=== PATIENT | female | born 2000 | race Caucasian/White ===

== ENCOUNTER 2023-11-03 22:52 | Inpatient (IN) | payer BC, SELFPAY ==
[2023-11-03 22:52] VITALS: BP 120/76; PULSE 107; TEMP 36.3; O2SAT 100
[2023-11-03] MEDS: Lactated Ringers 1,000 ML 50 ML IV (23:00)
[2023-11-03 23:07] VITALS: BMI 23.8
[2023-11-03 23:16] VITALS: PULSE 104; O2SAT 100
[2023-11-03 23:27] LABS: Absolute Lymphocyte Count 1.88 X10^3/uL (0.83-4.51); Absolute Neutrophil Count 9.2 X10^3/uL (2.0-7.7); Basophil# 0.03 X10^3/uL; Basophil% 0.2 % (0-1); Eosinophil# 0.02 X10^3/uL; Eosinophils% 0.2 % (0-5); Hematocrit 37.9 % (37-47); Hemoglobin 12.7 g/dL (12.0-15.0); Lymphocyte # 1.88 X10^3/ul (0.83-4.51); Lymphocyte % 15.5 % (19-41); Mean Corp Hgb Conc 33.5 g/dL (32-36); Mean Corpuscular Hgb 32.3 pg (27.0-32.0); Mean Corpuscular Volume 96.4 fL (81-99); Mean Platelet Vol. 9.7 fl (6.2-12.0); Monocyte% 7.4 % (0-10); NRBC Flagged by Analyzer 0 % (0-5); Neutrophil # 9.17 X10^3/uL (2.7-7.7); Neutrophil % 75.5 % (47-70); Platelet Count 196 K/mm3 (150-450); RBC Distribution Width CV 13.2 % (11.6-14.6); RBC Distribution Width SD 47.1 fl (35.1-43.9); Red Blood Count 3.93 M/mm3 (4.2-5.4); White Blood Count 12.1 K/mm3 (4.4-11.0)
[2023-11-04] VITALS (19 sets, daily range): BP systolic 101–117; BP diastolic 53–71; PULSE 76–229; RESP 16; TEMP 36.3–37.4; O2SAT 87–99
[2023-11-04] MEDS: Methylergonovine 0.2 MG/ML Ampul IM (00:58)
[2023-11-04] MEDS: Oxytocin 15 Units/NS 250ml 15 UNITS/250 ML IV.SOLN 83 UNITS IV (01:00)
[2023-11-04 01:04] LABS: Syphilis Antibodies Non-reactive
--- NOTE | 2023-11-04 01:17 | PCM.HP.OB ---
HPI - General General Date of Admission: 11/03/23 HPI Narrative ALEKSANDER MEYERS, is a 23 F at 40.2 weeks gestation who presents in spontaneous labor. Maternal Data Information DEBBY Calculator Estimated Delivery Date Method Current WG Current Estimate 11/02/23 Manual 40w 2d PFSH PFS Medical History History of blood transfusion Home Medications vit 168-iron 27 mg-folic acid 800 mcg-omega3 235 mg capsule (One-A-Day -1) 1 cap PO DAILY 11/03/23 [History Last Taken 11/02/23 10:00 1 cap] Allergy/AdvReac Type Severity Reaction Status Date / Time Sulfa (Sulfonamide Allergy Hives Verified 11/03/23 23:08 Antibiotics) Surgical History History of surgery Social History Smoking Status: Never smoker History Elective abortions Hx Para 1 Spontaneous abortions Hx # Term Pregnancies Ectopic pregnancies Hx # Pregnancies Multiple births # of living children ROS Eyes Eyes: Denies blurry vision, change in vision or spots in vision ENT HEENT: Denies dizziness or headache(s) Cardiovascular Cardiovascular: Denies abdominal pain, chest pain or dyspnea Respiratory/Chest Respiratory/Chest: Denies cough, dyspnea, shortness of breath at rest or shortness of breath with exertion Gastrointestinal Gastrointestinal: Denies abdominal pain, diarrhea or vomiting Genitourinary Genitourinary: Denies change in urinary stream, difficulty urinating or dysuria Musculoskeletal Musculoskeletal: Reports none Integumentary Integumentary: Denies rash Neurologic Neurologic: Denies dizziness, headache(s), memory loss or weakness Psychiatric Psychiatric: Reports none Vital Signs Vital Signs Vital Signs: 11/03/23 23:16 11/03/23 23:16 11/04/23 00:00 Pulse Rate 104 H Blood Pressure 117/66 BP Systolic 117 BP Diastolic 66 Pulse Ox 100 11/04/23 00:00 11/04/23 01:15 11/04/23 01:15 Pulse Rate 95 97 Blood Pressure 110/67 BP Systolic 110 BP Diastolic 67 Pulse Ox 11/04/23 01:15 Pulse Rate Blood Pressure BP Systolic BP Diastolic Pulse Ox 99 Weight Weight: 161 lb 8 oz Body Mass Index (BMI) 23.8 Physical Exam Const alert, oriented x3 and no apparent distress General Appearance: cooperative Orientation / Consciousness: awake Exam Limitations: no limitations HEENT normocephalic Head and Scalp: normal to inspection Eyes General Eye: normal appearance of both eyes Neck full ROM and no lymphadenopathy Lymph Lymphatic: no lymphadenopathy noted Chest inspection of chest normal Resp normal respiratory effort, normal air movement and clear to auscultation bilaterally Effort and Inspection: able to speak in complete sentences and symmetric chest movement Cardio regular rate and regular rhythm GI normal to inspection, nondistended, normoactive bowel sounds Manual OB Exam: presentation cephalic Back/Spine normal ROM Extremity full ROM and no calf tenderness Skin no rashes or lesions noted General Skin Exam: no breakdown Neuro oriented x3 and CN's II-XII intact bilaterally Psych mental status grossly normal and thought process normal Labs Labs Labs: Blood Type O POSITIVE Antibody Screen NEGATIVE Hct 37.9 % (37-47) Hgb 12.7 g/dL (12.0-15.0) Syphilis Total Ab Non-reactive GBS NEG Assessment & Plan (1) 40 weeks gestation of : (2) Spontaneous onset of labor: (3) History of rhabdomyosarcoma: COMMENT: Left forearm. Remission for 5 years. PLAN: Plan CE Cat. 1 tracing, NST reactive Admit to labor and delivery Routine labs Start IV and run fluids per orders Epidural if indicated Anticipate Dr. Alejandro notified of admission and is collaborating physician
--- NOTE | 2023-11-04 01:24 | OP.PCM_ITS ---
Assessment & Plan (1) Precipitous delivery: (2) Vaginal hematoma: (3) Care and examination of lactating mother: Maternal Data Information DEBBY Calculator Estimated Delivery Date Method Current WG Current Estimate 11/02/23 Manual 40w 2d Vaginal Delivery Maternal Presentation Maternal Presentation: Active Labor Maternal Presentation: at 40.2 weeks gestation that presented in spontaneous, active labor. Type of Induction: Amniotomy (Augmentation at 9 cm dilation) Operative Information Date of Procedure: 11/04/23 Pre-Operative Diagnosis: Term, Spontaneous onset of labor Post-Operative Diagnosis: Precipitous , live female Surgery / Procedure Performed: Spontaneous Vaginal Delivery Type of Anesthesia: None Estimated Blood Loss: 200 Time of Delivery: 00:56 Findings Description of Procedure: Patient arrived to unit and quickly progressed to complete dilation. Unmedicated and requesting AROM to deliver. AROM for meconium fluid. Patient pushed well with contractions. Delivery of head over intact perineum followed imm ediately by anterior shoulder and remainder of infant body without traction. Vigorous female placed on maternal abdomen and attended to by nursing staff. Dr. Nichols present in room for delivery. Pitocin IM given for active management of the third stage of labor. 3 vessel cord clamped and cut by FOB after delay and placed immediately skin to skin with patient. Placenta delivered spontaneously and intact. Vagina and perineum intact. Small hematoma noted to introitus. Vaginal sweep completed by me. Fundus firm and 1 below U. Hemostasis obtained. EBL 200 cc. Patient and infant bonding well at this time. Dr. Alejandro notified of delivery. Presentation: Vertex Amniotic Membrane Rupture Type: Artificial Time of Membrane Rupture: 0046 Amniotic Fluid Description: Lightly stained meconium Placental Delivery Description: Spontaneous Placenta Disposition: [facility] Cord Vessel Description: 3 Vessels Cord Entanglement: None Infant A Gender: Female (1 minute): 9 (5 minute): 9 Delayed Cord Clamping: Yes Post Vaginal Delivery Medications Given After Delivery: IM Pitocin Episiotomy Description: None Laceration: None Complication Complications: None
[2023-11-04] MEDS: Acetaminophen 500 MG Tablet 1000 MG PO ×3 (01:57→17:07)
[2023-11-04] MEDS: Benzocaine/Lanolin/Aloe Vera 1 SPRAY EACH TOPICAL (01:58)
[2023-11-04] MEDS: Naproxen 500 MG Tablet PO ×3 (01:58→21:08)
[2023-11-04 06:04] LABS: Absolute Lymphocyte Count 1.55 X10^3/uL (0.83-4.51); Basophil# 0.03 X10^3/uL; Basophil% 0.2 % (0-1); Hematocrit 40.4 % (37-47); Hemoglobin 13.6 g/dL (12.0-15.0); Lymphocyte # 1.55 X10^3/ul (0.83-4.51); Lymphocyte % 8.2 % (19-41); Mean Corp Hgb Conc 33.7 g/dL (32-36); Mean Corpuscular Volume 95.1 fL (81-99); Mean Platelet Vol. 9.6 fl (6.2-12.0); Monocyte# 1.21 X10^3/uL; Monocyte% 6.4 % (0-10); NRBC Flagged by Analyzer 0 % (0-5); Neutrophil # 16.01 X10^3/uL (2.7-7.7); Neutrophil % 84.6 % (47-70); Platelet Count 215 K/mm3 (150-450); RBC Distribution Width CV 13.1 % (11.6-14.6); RBC Distribution Width SD 45.2 fl (35.1-43.9); Red Blood Count 4.25 M/mm3 (4.2-5.4); White Blood Count 18.9 K/mm3 (4.4-11.0)
[2023-11-05 01:44] VITALS: BP 94/48; PULSE 71; RESP 16; TEMP 36.7
[2023-11-05] MEDS: Acetaminophen 500 MG Tablet 1000 MG PO (02:10)
--- NOTE | 2023-11-05 08:34 | PCM.PROGNOTE ---
Subjective Subjective patient seen at bedside, doing well. Patient reports good pain control. lochia mild. breast feeding. reports vulvar hematoma not getting larger, minimal soreness- urinating w/o difficulty. Objective Data Objective Data Vital Signs: Vital Signs Temp Pulse Resp BP Pulse Ox O2 Del Method 98.0 F 71 16 94/48 L 99 Room Air 11/05/23 01:44 11/05/23 01:44 11/05/23 01:44 11/05/23 01:44 11/04/23 01:40 11/05/23 01:44 Oxygen Delivery Method Room Air Weight: 73.255 kg Body Mass Index (BMI) 23.8 Intake & Output: Intake and Output for Last 24 Hours 11/03/23 11/04/23 11/05/23 23:59 23:59 23:59 Intake Total 346.67 / 346.67 Output Total 200 / 200 Balance 146.67 / 146.67 Lab / Micro Data 11/04/23 05:52 Physical Exam Narrative Pt declined evaluation of vulvar hematoma site at this time- states was examined earlier and it was stable Fundus firm Const alert and oriented x3 General Appearance: cooperative HEENT normocephalic Neck General: normal visual inspection GI soft to palpation and non-distended GI Narrative: Fundus firm Extremity normal to inspection and no calf tenderness Skin no rashes or lesions noted Neuro oriented x3 and CN's II-XII intact bilaterally Psych mental status grossly normal Assessment & Plan Assessment/Plan (1) Care and examination of lactating mother: (2) Vaginal hematoma: (3) Precipitous delivery: (4) History of rhabdomyosarcoma: (5) Vaginal delivery: PLAN: Plan PPD#1 , Doing well Routine care pain mgmt ambulation dc home
--- NOTE | 2023-11-05 08:36 | DCINST_ITS ---
Discharge Instructions Diet Discharge Diet: No restrictions Activity May resume sexual activity in: 6-8 weeks Dressing / Incision Call your doctor if you observe: Fever of 101 or Higher, Inability to urinate, Using more than 1 pad per hour and Uncontrolled pain Follow Up Care Please Follow Up With: Mary Bey MD When: 1-2 weeks post and again at 6 weeks post . [phone] Test Results: Test results from this visit will be discussed in further detail at your follow- up appointment, if applicable. Discharge Plan Admission Admit Date/Time: 11/03/23 22:52 Attending Provider: Medina Leong Discharge Orders/Prescriptions Prescriptions: New acetaminophen 500 mg Tablet 1,000 mg PO Q6H PRN PRN (Reason: Pain 1-10 Or Fever) Qty: 0 0RF naproxen 500 mg Tablet 500 mg PO Q8H PRN PRN (Reason: Pain Score 1-3) Qty: 0 0RF Continued One-A-Day -1 27 mg iron- 800 mcg-235 mg capsule 1 cap PO DAILY Disposition Disposition (needs filled in before D/C Order can be placed): Home, Self Care
[2023-11-05] MEDS: Naproxen 500 MG Tablet PO (09:18)
[2023-11-05 09:47] VITALS: BP 98/59; PULSE 70; RESP 16; TEMP 36.3
== END 2023-11-05 12:10 | disposition home or self-care (01) | DRG 806 ==
LOC: WP 22:53
PROVIDERS: Admitting Provider Advanced Practice Midwife; Referring Provider Advanced Practice Midwife; Visit Provider Advanced Practice Midwife
DX: O62.3 Precipitate labor (principal); Z37.0 Single live birth; O71.7 Obstetric hematoma of pelvis; O77.0 Labor and delivery complicated by meconium in amniotic fluid; Z3A.40 40 weeks gestation of pregnancy; Z85.831 Personal history of malignant neoplasm of soft tissue
CPT/HCPCS: 59050; 85025; 86780; 86850; 86900; 86901; 99221; J7120; G0378

== ENCOUNTER 2025-01-06 07:00 | Inpatient (IN) | payer BC, SELFPAY ==
[2025-01-06] VITALS (42 sets, daily range): BP systolic 100–135; BP diastolic 55–91; PULSE 67–229; RESP 16–18; TEMP 36.3–37; O2SAT 96–100; BMI 25.6
--- NOTE | 2025-01-06 07:21 | HP.PCM.OB_ITS ---
HPI - General General Date of Admission: 01/06/25 HPI Narrative ALEKSANDER MEYERS, is a 24 F at 41.3 weeks gestation who presents for induction of labor for postdates. PFSH PFSH Medical History History of blood transfusion Home Medications ?Medication ?Instructions ?Recorded ?Last Taken ?Type vit 168-iron 27 mg-folic 1 cap PO DAILY pregn kathy 11/03/23 01/05/25 History acid 800 mcg-omega3 235 mg capsule (One-A-Day -1) Allergy/AdvReac Type Severity Reaction Status Date / Time Sulfa (Sulfonamide Allergy Hives Verified 01/06/25 07:22 Antibiotics) Surgical History (Updated 01/06/25 @ 07:37 by Jaclyn Smyth) History of surgery Social History Smoking Status: Never smoker History Elective abortions Hx Para 2 Spontaneous abortions Hx # Term Pregnancies Ectopic pregnancies Hx # Pregnancies Multiple births # of living children NST FHR Rate Baby A Variability:: Moderate Accelerations:: 15 x 15 Decelerations:: None NST Reactive:: Yes FHR Category:: Category I ROS Eyes Eyes: Denies blurry vision, change in vision or spots in vision ENT HEENT: Denies dizziness or headache(s) Cardiovascular Cardiovascular: Denies abdominal pain, chest pain or dyspnea Respiratory/Chest Respiratory/Chest: Denies cough, dyspnea, shortness of breath at rest or s hortness of breath with exertion Gastrointestinal Gastrointestinal: Denies abdominal pain, diarrhea or vomiting Genitourinary Genitourinary: Denies change in urinary stream, difficulty urinating or dysuria Musculoskeletal Musculoskeletal: Reports none Integumentary Integumentary: Denies rash Neurologic Neurologic: Denies dizziness, headache(s), memory loss or weakness Psychiatric Psychiatric: Reports none Vital Signs Vital Signs Vital Signs: Weight Weight: 173 lb 11.588 oz Body Mass Index (BMI) 25.6 Physical Exam Const alert, oriented x3 and no apparent distress General Appearance: cooperative Orientation / Consciousness: awake Exam Limitations: no limitations HEENT normocephalic Head and Scalp: normal to inspection Eyes General Eye: normal appearance of both eyes Neck full ROM and no lymphadenopathy Lymph Lymphatic: no lymphadenopathy noted Chest inspection of chest normal Resp normal respiratory effort, normal air movement and clear to auscultation bilaterally Effort and Inspection: able to speak in complete sentences and symmetric chest movement Cardio regular rate and regular rhythm GI normal to inspection, nondistended, normoactive bowel sounds Manual OB Exam: presentation cephalic Back/Spine normal ROM Extremity full ROM and no calf tenderness Skin no rashes or lesions noted General Skin Exam: no breakdown Neuro oriented x3 and CN's II-XII intact bilaterally Psych mental status grossly normal and thought process normal Labs Labs Labs: Blood Type O POSITIVE Antibody Screen NEGATIVE Hct 36.2 % (37-47) L Hgb 12.1 g/dL (12.0-15.0) Syphilis Total Ab Non-reactive Rhogam given: No Assessment & Plan (1) History of rhabdomyosarcoma: COMMENT: Left forearm. Remission for 5 years. (2) Post term , 41 weeks: (3) Encounter for induction of labor: PLAN: Plan Admit to labor and delivery CE 2/-2 Nipple stimulation and position changes at this time Recheck in 2-3 hours, if no change - agrees to AROM Dr. Medina notified of admission and is collaborating physician
[2025-01-06] MEDS: Lactated Ringers 1,000 ML 50 ML IV ×2 (07:55→10:23)
[2025-01-06 08:17] LABS: Absolute Lymphocyte Count 1.69 X10^3/uL (0.83-4.51); Absolute Neutrophil Count 6.1 X10^3/uL (2.0-7.7); Basophil# 0.02 X10^3/uL; Basophil% 0.2 % (0-1); Eosinophil# 0.04 X10^3/uL; Eosinophils% 0.5 % (0-5); Hematocrit 36.2 % (37-47); Hemoglobin 12.1 g/dL (12.0-15.0); Lymphocyte # 1.69 X10^3/ul (0.83-4.51); Lymphocyte % 19.8 % (19-41); Mean Corp Hgb Conc 33.4 g/dL (32-36); Mean Corpuscular Hgb 30.8 pg (27.0-32.0); Mean Corpuscular Volume 92.1 fL (81-99); Mean Platelet Vol. 9.8 fl (6.2-12.0); Monocyte# 0.63 X10^3/uL; Monocyte% 7.4 % (0-10); NRBC Flagged by Analyzer 0 % (0-5); Neutrophil # 6.08 X10^3/uL (2.7-7.7); Neutrophil % 71.3 % (47-70); Platelet Count 201 K/mm3 (150-450); RBC Distribution Width CV 13.2 % (11.6-14.6); RBC Distribution Width SD 43.8 fl (35.1-43.9); Red Blood Count 3.93 M/mm3 (4.2-5.4); White Blood Count 8.5 K/mm3 (4.4-11.0)
[2025-01-06 09:21] LABS: Syphilis Antibodies Non-reactive
--- NOTE | 2025-01-06 15:39 | PN.OBGYN_ITS ---
Subjective Subjective Patient ambulating in room and sitting on birthing ball. Objective Data Objective Data Vital Signs: Vital Signs Temp Pulse Resp BP Pulse Ox 97.8 F 93 16 106/63 97 01/06/25 11:09 01/06/25 13:27 01/06/25 11:09 01/06/25 11:09 01/06/25 13:27 Weight: 173 lb 11.588 oz Body Mass Index (BMI) 25.6 Intake & Output: Intake and Output for Last 24 Hours 01/04/25 01/05/25 01/06/25 23:59 23:59 23:59 Intake Total 123.33 / 123.33 Balance 123.33 / 123.33 Lab / Micro Data Attestation: I reviewed the patient's lab results. 01/06/25 07:55 Labs: Laboratory Results - last 24 hr 01/06/25 07:55: WBC 8.5, RBC 3.93 L, Hgb 12.1, Hct 36.2 L, MCV 92.1, MCH 30.8, MCHC 33.4, RDW Std Deviation 43.8, RDW Coeff of Jan 13.2, Plt Count 201, MPV 9.8, Immature Gran % (Auto) 0.800, Neut % (Auto) 71.3 H, Lymph % (Auto) 19.8, Mclennan % (Auto) 7.4, Eos % (Auto) 0.5, Baso % (Auto) 0.2, Absolute Neuts (auto) 6.1, Absolute Lymphs (auto) 1.69, Nucleated RBC % 0, Syphilis Total Ab Non- reactive, Blood Type O POSITIVE, Antibody Screen NEGATIVE Assessment & Plan (1) Encounter for induction of labor: (2) Post term , 41 weeks: PLAN: Plan CE /-2 Soft and stretchy AROM for clear fluid If no change by next exam- will start Pitocin IV Anticipate
[2025-01-06] MEDS: Oxytocin 15 Units/NS 250ml 15 UNITS/250 ML IV.SOLN 2 UNITS IV (18:30)
[2025-01-06] MEDS: LACTATED RINGERS 500 ML 999 ML IV (19:48)
--- NOTE | 2025-01-06 21:12 | EX.PCM.OBVAG ---
Assessment & Plan (1) Vaginal delivery: (2) Care and examination of lactating mother: Maternal Data Information DEBBY Calculator Estimated Delivery Date Method Current WG Current Estimate 12/27/24 Manual 41w 3d Gestational age: 41.3 Vaginal Delivery Vaginal Delivery Information Procedure Performed: Spontaneous Vaginal Delivery Surgeon/Practitioner: Medina Leong Date of Procedure: 01/06/25 Pre-Procedure Diagnosis: Term gestation, induction of labor Post-Procedure Diagnosis: , Live male Type of anesthesia: None Estimated Blood Loss: 200 Time of Delivery: 20:27 Findings Description of procedure: Patient progressed to complete dilation. With good maternal effort, head delivered followed by anterior shoulder and remainder of body without any force, delay, or traction. Double nuchal cord loose and easily resolved. Vigorous male was delivered atraumatically and placed on maternal abdomen. Pitocin IV started for active management of the third stage of labor. 3 vessel cord clamped and cut after delay and infant placed immediately skin to skin with patient. Cord blood collected. Placenta delivered spontaneously and intact. After inspection, vagina and perineum are intact. Vaginal sweep performed. Fundus is firm 2 below U and bleeding is hemostatic. Sponge and sharps counts correct. Patient and infant bonding well at this time. Dr. Medina notified of delivery. Routine post orders placed. Presentation: Vertex Amniotic Membrane Rupture Type: Artificial Amniotic Fluid Description: Clear Placental Delivery Description: Spontaneous Placenta Disposition: [facility] Specimen collected: No Cord Vessel Description: 3 Vessels Cord Entanglement: Around neck x 2, loose Nuchal Cord Compression: Without compression A Gender: Male (1 minute): 8 (5 minute): 9 Delayed Cord Clamping: Yes Home Attendant director distribution: No Post Vaginal Deli Medications given after delivery: IV Pitocin Episiotomy Description: None Laceration: None Complication Complications: No
[2025-01-06] MEDS: Oxytocin 15 Units/NS 250ml 15 UNITS/250 ML IV.SOLN 83 UNITS IV (21:22)
[2025-01-06] MEDS: Naproxen 500 MG Tablet PO (22:00)
[2025-01-07] VITALS (10 sets, daily range): BP systolic 95–113; BP diastolic 51–63; PULSE 79–99; RESP 14–16; TEMP 36.4–37.2; O2SAT 96–98
[2025-01-07] MEDS: Naproxen 500 MG Tablet PO ×2 (06:21→14:40)
--- NOTE | 2025-01-07 09:28 | PCM.PN.CNM ---
Subjective Subjective Patient seen at bedside. Denies any pain. Ambulating and voiding without difficulty. Lochia decreasing. independently. Objective Data Objective Data Vital Signs: Vital Signs Temp Pulse Resp BP Pulse Ox O2 Del Method 98 F 99 14 113/59 L 97 Room Air 01/07/25 08:23 01/07/25 08:23 01/07/25 08:23 01/07/25 08:23 01/07/25 04:25 01/07/25 08:23 Oxygen Delivery Method Room Air Weight: 173 lb 11.588 oz Body Mass Index (BMI) 25.6 Intake & Output: Intake and Output for Last 24 Hours 01/05/25 01/06/25 01/07/25 23:59 23:59 23:59 Intake Total 1426.66 / 1426.66 250 / 250 Output Total 650 / 650 450 / 450 Balance 776.66 / 776.66 -200 / -200 Lab / Micro Data Attestation: I reviewed the patient's lab results. 01/06/25 07:55 Labs: Laboratory Results - last 24 hr 01/06/25 07:55: Antibody Screen NEGATIVE ROS Eyes Eyes: Denies blurry vision, change in vision or spots in vision ENT HEENT: Denies dizziness or headache(s) Cardiovascular Cardiovascular: Denies abdominal pain, chest pain or dyspnea Respiratory/Chest Respiratory/Chest: Denies cough, dyspnea, shortness of breath at rest or shortness of breath with exertion Gastrointestinal Gastrointestinal: Denies abdominal pain, diarrhea or vomiting Genitourinary Genitourinary: Denies change in urinary stream, difficulty urinating or dysuria Musculoskeletal Musculoskeletal: Reports none Integumentary Integumentary: Denies rash Neurologic Neurologic: Denies dizziness, headache(s), memory loss or weakness Physical Exam Const alert and no apparent distress General Appearance: cooperative and comfortable Exam Limitations: no limitations HEENT normocephalic Eyes General Eye: normal appearance of both eyes Neck full ROM General: normal visual inspection Chest Chest: symmetrical chest wall rise Resp normal respiratory effort and normal air movement Effort and Inspection: symmetric chest movement Auscultation: clear to auscultation bilaterally Cardio regular rate and regular rhythm GI normal to inspection, nondistended, normoactive bowel sounds Back/Spine normal ROM Extremity full ROM and no calf tenderness General Extremity: normal exam except as noted Skin no rashes or lesions noted Neuro oriented x3 Speech: speech normal Psych mental status grossly normal Thought Process: normal thought process Assessment & Plan (1) Vaginal delivery: (2) Care and examination of lactating mother: PLAN: Plan PPD 1 support Routine care Desires discharge home tomorrow
[2025-01-08 01:10] VITALS: BP 93/53; PULSE 72; RESP 16; TEMP 36.4; O2SAT 97
[2025-01-08 01:11] VITALS: BP 93/53; PULSE 75
--- NOTE | 2025-01-08 06:46 | PCM.DC.SUM ---
Providers Date of Admission: 01/06/25 Primary Care Physician: No Primary Care Phys Reason For Visit: VAG Diagnosis Discharge Diagnosis (1) Vaginal delivery: Status: Acute Code(s): O80 - Encounter for full-term uncomplicated delivery (2) Care and examination of lactating mother: Status: Acute Code(s): Z39.1 - Encounter for care and examination of lactating mother Plan PPD 2 D/C home with follow up in office Medications at Discharge Home Medications vit 168-iron 27 mg-folic acid 800 mcg-omega3 235 mg capsule (One-A-Day -1) 1 cap PO DAILY 11/03/23 Hospital Course Operations None Procedures None Summary of Care Provided Minutes Spent on Discharge: 15 Hospital Course: Patient had vaginal delivery. Hospital course was uneventful. Physical Exam Narrative Patient seen at bedside. Denies pain. Ambulating and voiding without difficulty. Lochia decreased. Desires discharge home today. Const alert and oriented x3 General Appearance: Negative for in distress HEENT normocephalic Eyes General Eye: normal appearance of both eyes Neck General: normal visual inspection Chest Chest: symmetrical chest wall rise Resp normal respiratory effort and normal air movement Effort and Inspection: symmetric chest movement; Negative for tachypneic Auscultation: clear to auscultation bilaterally Cardio regular rate and regular rhythm Peripheral Pulses: pulses 2+ throughout GI normal to inspection, nondistended, normoactive bowel sounds Narrative: Ice to perineum OB / External & Speculum: vaginal bleeding and other Lochia decreasing Uterus Palpation: uterus fundus firm (Below U) Extremity normal to inspection, full ROM and normal capillary refill Skin no rashes or lesions noted Neuro oriented x3, CN's II-XII intact bilaterally and gait normal Psych mental status grossly normal, thought process normal and activity/motor behavior normal Weight / BMI Weight Weight: 173 lb 11.588 oz Body Mass Index (BMI) 25.6 ABG / Lab / Microbiology Data 01/06/25 07:55 D/C Instructions Discharge Diet: No restrictions Discharge Activity: Return to Normal Activity, No Restrictions, May Drive, May Shower and May Take a Tub Bath (Warm water only. No bath salts, soaps, bubbles) May resume sexual activity in: 6-8 weeks Weight Bearing Status: Weight bearing as tolerated Call your doctor if you observe: Fever of 101 or Higher, Inability to urinate, Using more than 1 pad per hour, Shortness of breath, Dizziness, Chest pain, Calf discomfort and Uncontrolled pain DC O2, CPAP, BIPAP Needs Home O2 Discharge instructions: No Please Follow Up With: [facility] [place] Familia GALEANO When: 2 weeks in office or virtual Meaningful Use Info Meaningful Use Meaningful Use Diagnoses (Choose all that apply): None applicable Ischemic Stroke Statin Dosing Therapy Reference: STATIN DOSE THERAPY REFERENCE: * Patients > 75 years receive moderate or high dose statin therapy. * Patients 75 years or YOUNGER should receive HIGH intensity statin dose unless contraindicated. You will be required to document reason for non-treatment if statin daily dose does not meet guidelines. HIGH DOSE STATIN THERAPY DAILY Atorvastatin > than or = to 40 mg Rosuvastatin > than or = to 20 mg Amlodipine + Atorvastatin > than or = to 2.5/40 mg Ezetimibe + Simvastatin 10/80 mg Simvastatin 80mg Discharge Plan Admission Admit Date/Time: 01/06/25 07:00 Primary Reason for Your Visit: Labor and Delivery Attending Provider: Medina Leong Primary Care Provider: Care Physician,No Primary Discharge Orders/Prescriptions Prescriptions: No Action One-A-Day -1 27 mg iron- 800 mcg-235 mg capsule 1 cap PO DAILY Referrals / Follow Up: Medina Leong CNM [Med Staff - Adv Practice Prof] - Care Physician,No Primary [Primary Care Provider] - Disposition Disposition (needs filled in before D/C Order can be placed): Home, Self Care
[2025-01-08 07:20] VITALS: BP 104/56; PULSE 74; RESP 16; TEMP 36.1
[2025-01-08 07:31] VITALS: BP 104/56; PULSE 74
== END 2025-01-08 07:50 | disposition home or self-care (01) | DRG 807 ==
PROVIDERS: Admitting Provider Advanced Practice Midwife; Referring Provider Advanced Practice Midwife; Visit Provider Advanced Practice Midwife
DX: O48.0 Post-term pregnancy (principal); Z37.0 Single live birth; O69.81X0 Labor and delivery complicated by cord around neck, without compression, not applicable or unspecified; Z3A.41 41 weeks gestation of pregnancy
CPT/HCPCS: 59025; 59050; 85025; 86780; 86850; 86900; 86901